=== PATIENT | male | born 1955 | race Caucasian/White ===

== ENCOUNTER 2019-02-22 10:57 | Emergency (ER) | payer BC ==
[~2019-02-22] VITALS: Ht 177.8 cm; Wt 88.8 kg
[2019-02-22 11:01] VITALS: BP 165/95; PULSE 72; RESP 16; Ht 177.8 cm; Wt 88.8 kg
[2019-02-22] MEDS ORDERED: LIDOCAINE 2% (MDV) 20 ML INJ INJ STA (11:18)
[2019-02-22] MEDS ORDERED: IBUP-1542 PO (11:20)
--- NOTE | 2019-02-22 11:22 | ERD ---
ER Documentation Chief Complaint Chief Complaint right hand lac with hose HPI 63-year-old male with no reported past medical history presents with small laceration to right hand. Injury sustained while working with a garden hose. Patient has approximately half centimeter centimeter laceration on palm just below thumb. At time evaluation moving all fingers, denying any paresthesias or numbness in affected extremity. Reports all vaccinations up-to-date no allergies to any medications. ROS All systems reviewed and are negative except as per history of present illness. Medications Home Meds Active Scripts Ibuprofen* (Motrin*) 600 Mg Tab, 600 MG PO Q6, #30 TAB Prov:CHONNARCISOTAVIA BUTTS 02/22/19 Allergies Allergies: Coded Allergies: No Known Allergy (Unverified , 02/22/19) PMhx/Soc Hx Alcohol Use: Yes (EVERYDAY) Hx Substance Use: No Hx Tobacco Use: No Smoking Status: Never smoker FmHx Family History: No diabetes, No coronary disease, No other Physical Exam Vitals Vital Signs Date Temp Pulse Resp B/P (MAP) Pulse Ox O2 O2 Flow FiO2 Time Delivery Rate 02/22/19 97.6 72 16 165/95 97 11:01 (118) Physical Exam Const: No acute distress Head: Atraumatic Eyes: Normal Conjunctiva ENT: Normal External Ears, Nose and Mouth. Neck: Full range of motion. No meningismus. Resp: Clear to auscultation bilaterally Cardio: Regular rate and rhythm, no murmurs Abd: Soft, non tender, non distended. Normal bowel sounds Skin: No petechiae or rashes Back: No midline or flank tenderness Ext: No cyanosis, or edema Neur: Awake and alert Psych: Normal Mood and Affect Results 24 hrs Current Medications Medications Dose Sig/Dominique Start Time Status Last (Trade) Ordered Route PRN Stop Time Admin Dose Reason Admin Lidocaine 20 ml ONCE STAT 02/22/19 DC 02/22/19 (Xylocaine INJ 11:18 11:31 2% (Mdv) 20 02/22/19 11:19 ml) Diphtheria/ 0.5 ml ONCE ONCE 02/22/19 DC 02/22/19 Tetanus/Acell IM* 11:30 11:31 Pertussis 02/22/19 11:31 (Adacel) Procedures/MDM 63-year-old male presents with laceration to palm of right hand. Laceration repaired in ED without issue. Patient neurovascularly intact post procedure. Laceration Repair by me: Anesthesia: 1% lidocaine locally Location: Right hand palm just below the thumb Tendon/Joint/Nerves: No injury Foreign body: None detected after copious irrigation and exploration Technique: Simple Interrupted Sutures Complexity: No subcutaneous sutures/mucosal repair/edge excision Post Closure Length: 0.5 cm Patient's bleeding was easily controlled in the department and there is no indication of anemia. No evidence of compartment syndrome, neurologic injury, vascular injury, open joint, tendon laceration, or foreign body. Patient is appropriate for outpatient follow up. 48 hour wound check. Scar minimization instructions given. Departure Diagnosis: Primary Impression: Laceration Condition: Stable Patient Instructions: Laceration, Hand Additional Instructions: Call your primary care doctor TOMORROW for an appointment during the next 2-3 days.See the doctor sooner or return here if your condition worsens before your appointment time. Return to this emergency room or follow-up with your PMD for wound check in 48 hours. TAVIA HECK PA-C Feb 22, 2019 11:22
[2019-02-22] MEDS ORDERED: DIPHTH/TET/ACEL PERTUSS (ADULT) 0.5 ML VIAL IM* ONE (11:30)
== END 2019-02-22 12:30 | disposition home or self-care (01) ==
LOC: FTE 10:57
DX: S61.411A Laceration without foreign body of right hand, initial encounter (principal); W26.8XXA Contact with other sharp object(s), not elsewhere classified, initial encounter; Y92.9 Unspecified place or not applicable
CPT/HCPCS: 90471; 90715

== ENCOUNTER 2019-02-24 08:18 | Emergency (ER) | payer BC ==
[~2019-02-24] VITALS: Ht 179.1 cm; Wt 88.0 kg
[~2019-02-24 08:18] MED LIST: IBUP-1542 PO
[2019-02-24 08:22] VITALS: BP 133/94; PULSE 67; RESP 20; Ht 179.1 cm; Wt 88.0 kg
--- NOTE | 2019-02-24 15:45 | ERD ---
ER Documentation Chief Complaint Chief Complaint re check HPI 63-year-old male presenting for a wound check. Patient had a laceration 3 days ago when a hose exploded. Patient is right-hand dominant. Denies any numbness or tingling is able to move all his fingers without difficulty. Denies other medical problems. NKDA. Surgical history denies. Social history denies ROS All systems reviewed and are negative except as per history of present illness. Medications Home Meds Active Scripts Ibuprofen* (Motrin*) 600 Mg Tab, 600 MG PO Q6, #30 TAB Prov:TAVIA HECK PA-C 02/22/19 Allergies Allergies: Coded Allergies: No Known Allergy (Unverified , 02/24/19) PMhx/Soc History of Surgery: Yes (back) Anesthesia Reaction: No Hx Neurological Disorder: No Hx Respiratory Disorders: No Hx Cardiac Disorders: No Hx Psychiatric Problems: No Hx Miscellaneous Medical Probl: No Hx Alcohol Use: Yes Hx Substance Use: No Hx Tobacco Use: No Smoking Status: Never smoker FmHx Family History: No diabetes, No coronary disease, No other Physical Exam Vitals Vital Signs Date Temp Pulse Resp B/P (MAP) Pulse Ox O2 O2 Flow FiO2 Time Delivery Rate 02/24/19 97.4 67 20 133/94 96 08:22 (107) Physical Exam GENERAL: The patient is well-appearing, well-nourished, in no acute distress CHEST: Clear to auscultation bilaterally. There are no rales, wheezes or rhonchi. HEART: Regular rate and rhythm. No murmurs, clicks, rubs or gallops. EXTREMITIES: Equal pulses bilaterally. There is no peripheral clubbing, cyanosis or edema. No focal swelling or erythema. Full range of motion. NEUROLOGIC: Alert and oriented. Cranial nerves II through XII intact. Motor strength in all 4 extremities with 5 out of 5 strength. Sensation grossly intact. Normal speech and gait. SKIN: Healing laceration noted to the webbing spaces between the thumb and the first finger. No surrounding erythema. No dehiscence of the wound. Procedures/MDM MDM: 63-year-old male presenting for wound check. I have low suspicion for wound infection. Patient is recommended to keep the wound open and air dry. Patient is told symptoms change or worsen to return immediately to the ER. Patient is discharged with strict ER precautions. Patient should have sutures removed within 5 days. All questions answered at discharge Departure Diagnosis: Primary Impression: Visit for wound check Condition: Stable Patient Instructions: Wound Check, Lac F/U (No Infection) Referrals: [facility] YOU HAVE RECEIVED A MEDICAL SCREENING EXAM AND THE RESULTS INDICATE THAT YOU DO NOT HAVE A CONDITION THAT REQUIRES URGENT TREATMENT IN THE EMERGENCY DEPARTMENT. FURTHER EVALUATION AND TREATMENT OF YOUR CONDITION CAN WAIT UNTIL YOU ARE SEEN IN YOUR DOCTORS OFFICE WITHIN THE NEXT 1-2 DAYS. IT IS YOUR RESPONSIBILITY TO MAKE AN APPOINTMENT FOR FOLOW-UP CARE. IF YOU HAVE A PRIMARY DOCTOR --you should call your primary doctor and schedule an appointment IF YOU DO NOT HAVE A PRIMARY DOCTOR YOU CAN CALL OUR PHYSICIAN REFERRAL HOTLINE AT IF YOU CAN NOT AFFORD TO SEE A PHYSICIAN YOU CAN CHOSE FROM THE FOLLOWING [facility] [address] [facility] [address] [facility] [facility] [address] [facility] [address] [facility] [address] [facility]. [facility] [address] Additional Instructions: FOLLOW UP WITH YOUR PRIMARY CARE PHYSICIAN TOMORROW.Return to this facility if you are not improving as expected. BOWEN GERMAN PA-C Feb 24, 2019 15:45
== END 2019-02-24 08:46 | disposition home or self-care (01) ==
LOC: FTE 08:18
DX: Z48.01 Encounter for change or removal of surgical wound dressing (principal)
CPT/HCPCS: 99281

== ENCOUNTER 2019-03-02 07:49 | Emergency (ER) | payer BC ==
[~2019-03-02] VITALS: Ht 177.8 cm; Wt 89.1 kg
[2019-03-02 07:55] VITALS: BP 160/95; PULSE 69; RESP 18; Ht 177.8 cm; Wt 89.1 kg
--- NOTE | 2019-03-02 09:39 | ERD ---
ER Documentation Chief Complaint Chief Complaint suture removal on rigtht base of thumb HPI 63-year-old male presenting for suture removal to the base of the right thumb. Patient had sutures placed a week ago and has had no complication. [id number] and up-to-date on vaccinations. Has no problems moving his digits. Denies other medical problems. NKDA. Surgical history denies. Social history denies ROS All systems reviewed and are negative except as per history of present illness. Medications Home Meds Active Scripts Ibuprofen* (Motrin*) 600 Mg Tab, 600 MG PO Q6, #30 TAB Prov:TAVIA HECK PA-C 02/22/19 Allergies Allergies: Coded Allergies: No Known Allergy (Unverified , 02/24/19) PMhx/Soc Medical and Surgical Hx: pt denies Medical Hx History of Surgery: Yes (back) Anesthesia Reaction: No Hx Neurological Disorder: No Hx Respiratory Disorders: No Hx Cardiac Disorders: No Hx Psychiatric Problems: No Hx Miscellaneous Medical Probl: No Hx Alcohol Use: Yes Hx Substance Use: No Hx Tobacco Use: No Smoking Status: Never smoker FmHx Family History: No diabetes, No coronary disease, No other Physical Exam Vitals Vital Signs Date Temp Pulse Resp B/P (MAP) Pulse Ox O2 O2 Flow FiO2 Time Delivery Rate 03/02/19 97.9 69 18 160/95 97 07:55 (116) Physical Exam GENERAL: The patient is well-appearing, well-nourished, in no acute distress CHEST: Clear to auscultation bilaterally. There are no rales, wheezes or rhonchi. HEART: Regular rate and rhythm. No murmurs, clicks, rubs or gallops. EXTREMITIES: Equal pulses bilaterally. There is no peripheral clubbing, cyanosis or edema. No focal swelling or erythema. Full range of motion. Grossly neurovascularly intact. NEUROLOGIC: Alert and oriented. Cranial nerves II through XII intact. Motor strength in all 4 extremities with 5 out of 5 strength. Sensation grossly intact. Normal speech and gait. SKIN: Sutures intact to interdigital space of thumb and index finger. No surrounding erythema and no dehiscence of the wound. No purulence. Procedures/MDM ER course: 63-year-old male presenting for suture removal. Sutures removed without complication. MDM: 63-year-old male presenting for suture removal. I have low suspicion for tendon or ligament rupture. I have low suspicion for complication or infection of the wound. Patient is discharged with strict ER precautions and recommended to follow-up with primary care within 1 to 2 days for close evaluation. Patient is told symptoms change or worsen to return immediately to the ER. All questions answered at discharge Departure Diagnosis: Primary Impression: Encounter for removal of sutures Condition: Stable Patient Instructions: Suture Removal, No Complication Referrals: [facility] YOU HAVE RECEIVED A MEDICAL SCREENING EXAM AND THE RESULTS INDICATE THAT YOU DO NOT HAVE A CONDITION THAT REQUIRES URGENT TREATMENT IN THE EMERGENCY DEPARTMENT. FURTHER EVALUATION AND TREATMENT OF YOUR CONDITION CAN WAIT UNTIL YOU ARE SEEN IN YOUR DOCTORS OFFICE WITHIN THE NEXT 1-2 DAYS. IT IS YOUR RESPONSIBILITY TO MAKE AN APPOINTMENT FOR FOLOW-UP CARE. IF YOU HAVE A PRIMARY DOCTOR --you should call your primary doctor and schedule an appointment IF YOU DO NOT HAVE A PRIMARY DOCTOR YOU CAN CALL OUR PHYSICIAN REFERRAL HOTLINE AT IF YOU CAN NOT AFFORD TO SEE A PHYSICIAN YOU CAN CHOSE FROM THE FOLLOWING [facility] [address] [facility] [address] [facility] [address] [facility] [address] [facility] [address] [facility] [facility]. [address] Additional Instructions: FOLLOW UP WITH YOUR PRIMARY CARE PHYSICIAN TOMORROW.Return to this facility if you are not improving as expected. BOWEN GERMAN PA-C Mar 02, 2019 09:39
== END 2019-03-02 08:38 | disposition home or self-care (01) ==
LOC: FTE 07:49
DX: Z48.02 Encounter for removal of sutures (principal)
CPT/HCPCS: 99281